=== PATIENT | male | born 1965 | race Caucasian/White ===

== ENCOUNTER 2018-05-19 03:17 | Emergency (ER) | payer MEDICAID, OTHER ==
[2018-05-19 03:31] VITALS: RESP 20
--- NOTE | 2018-05-19 03:48 | C.PDOC ---
History Of Present Illness 54 y/o male c/o dental pain that woke him at 2 am. pt sts he saw dentist on wednesday and was started on advil and antibiotics, but pain woke him today and camr to ed for evaluation. pt sts pain less now than when he woke no facial swelling, no fever pt has appt with oral surgeon 05/31 Time Seen by Provider: 05/19/18 03:33 Chief Complaint (Nursing): Dental Pain History Per: Patient History/Exam Limitations: no limitations Onset/Duration Of Symptoms: Hrs (2) Current Symptoms Are (Timing): Better Severity: Moderate Quality: Positive for: Sharp Past Medical History Vital Signs: Last Vital Signs Temp 98.1 F 05/19/18 03:24 Pulse 60 05/19/18 03:24 Resp 20 05/19/18 03:24 BP 130/76 05/19/18 03:24 Pulse Ox 97 05/19/18 03:51 - Medical History PMH: No Chronic Diseases Family History: States: Unknown Family Hx - Social History Hx Alcohol Use: No Hx Substance Use: No - Immunization History Hx Tetanus Toxoid Vaccination: No Hx Influenza Vaccination: No Hx Pneumococcal Vaccination: No Review Of Systems Constitutional: Negative for: Fever, Chills ENT: Positive for: Mouth Pain. Negative for: Ear Pain, Throat Pain Respiratory: Negative for: Cough Gastrointestinal: Negative for: Nausea, Abdominal Pain Skin: Negative for: Rash, Lesions Neurological: Negative for: Weakness, Numbness Physical Exam - Physical Exam Appears: Non-toxic, No Acute Distress Skin: Warm, Dry Head: Atraumatic, Normacephalic Eye(s): bilateral: Normal Inspection Tongue: Normal Appearing, No Swelling Lips: Normal Appearing, No Swelling Teeth: Other (partly edentulous. multiple teeth broken or worn down to level of gums; lower right molar is such, and tender to palpation with no adjacent gum swelling. ) ED Course And Treatment O2 Sat by Pulse Oximetry: 97 Medical Decision Making Medical Decision Making: dental pain, already under care of dentist and on antibiotics. will tx for pain and refer back to dentist. 0422 pt was medicated and reports less pain. will contact dentist to make sooner appt. Disposition Counseled Patient/Family Regarding: Diagnosis, Need For Followup - Disposition Disposition: HOME/ ROUTINE Disposition Time: 04:23 Condition: IMPROVED Additional Instructions: Continue taking antibiotics as prescribed. Take ibuprofen 600 mg by mouth every - 6 hours. Call dentist in the morning to see if you can move appointment closer than May 31. Instructions: Dental Pain (DC) Forms: [facility] (Chinese) - Clinical Impression Clinical Impression: Pain due to dental caries
[2018-05-19 04:58] VITALS: BP 128/72; PULSE 82; TEMP 98.4
[2018-05-19 05:07] VITALS: O2SAT 97
== END 2018-05-19 04:57 | disposition home or self-care (01) ==
LOC: C.ER 03:17
DX: K02.9 Dental caries, unspecified (principal)
CPT/HCPCS: 96372; 99282; J1885